=== PATIENT | female | born 1960 | race Caucasian/White ===

== ENCOUNTER → 2017-04-29 | Outpatient (CLI) | payer OTHER ==
[~2017-04-29] MED LIST: ATV1 PO; CALCTAB5 PO; CYAN500T PO; GABA-113 PO; GINSANA PO; MAGNTAB4 PO; NORT25CA PO; OMEGCAP2 PO; PRLSR20 PO; RXC5 PO
== END | disposition home or self-care (01) ==
LOC: C.CPL 07:49
PROVIDERS: ATTEND Orthopaedic Surgery Sports Medicine
DX: S46.219A Strain of muscle, fascia and tendon of other parts of biceps, unspecified arm, initial encounter (principal); X58.XXXA Exposure to other specified factors, initial encounter